=== PATIENT | male | born 1990 | race Caucasian/White ===

== ENCOUNTER 2016-04-03 16:28 | Emergency (ER) | payer SELFPAY ==
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
[2016-04-03 20:33] VITALS: BP 119/69
== END 2016-04-03 19:25 | disposition home or self-care (01) ==
LOC: ER 16:28
DX: S90.02XA Contusion of left ankle, initial encounter (principal); F17.200 Nicotine dependence, unspecified, uncomplicated; W22.09XA Striking against other stationary object, initial encounter
CPT/HCPCS: 99283

== ENCOUNTER 2016-04-09 08:52 | Emergency (ER) | payer SELFPAY ==
[2016-04-09 09:03] VITALS: BP 128/73
--- NOTE | 2016-04-09 10:09 | ER Document Report ---
ED Flu Like - General Chief Complaint: Flu Symptoms Stated Complaint: VOMITING Notes: The patient is a 25-year-old male, current smoker, presents with 1 day of nausea , vomiting and diarrhea. He does not drink water every day and only drinks Mountain Dew. He is also having mild epigastric pain when he vomits and noticed a small speck of blood earlier in his vomit today. He denies fevers, rhinorrhea, neck stiffness, chest pain, shortness of breath, cough, rash, hematochezia or urinary symptoms. TRAVEL OUTSIDE OF THE [place] IN LAST 30 DAYS: No - Related Data Allergies/Adverse Reactions: Penicillins Allergy (Mild, Verified 04/09/16 09:03) Past Medical History - General Information source: Patient - Social History Smoking Status: Current Every Day Smoker Chew tobacco use (# tins/day): No Frequency of alcohol use: None Drug Abuse: None Family History: Reviewed & Not Pertinent Patient has suicidal ideation: No Patient has homicidal ideation: No Renal/ Medical History: Denies: Hx Peritoneal Dialysis - Immunizations Hx Diphtheria, Pertussis, Tetanus Vaccination: Yes Review of Systems - Review of Systems Notes: REVIEW OF SYSTEMS: CONSTITUTIONAL: -fevers, +chills EENT: -eye pain, -difficulty swallowing, -nasal congestion CARDIOVASCULAR:-chest pain, -syncope. RESPIRATORY: -cough, -SOB GASTROINTESTINAL: -abdominal pain, +nausea, +vomiting, +diarrhea GENITOURINARY: -dysuria, -hematuria MUSCULOSKELETAL: -back pain, -neck pain SKIN: -rash or skin lesions. HEMATOLOGIC: -easy bruising or bleeding. LYMPHATIC: -swollen, enlarged glands. NEUROLOGICAL: -altered mental status or loss of consciousness, -headache, - neurologic symptoms PSYCHIATRIC: -anxiety, -depression. ALL OTHER SYSTEMS REVIEWED AND NEGATIVE. Physical Exam - Vital signs Vitals: Temp Pulse Resp BP Pulse Ox 98.1 F 73 16 128/73 H 98 04/09/16 09:01 04/09/16 09:01 04/09/16 09:01 04/09/16 09:01 04/09/16 09:01 - Notes Notes: PHYSICAL EXAMINATION: GENERAL: Well-appearing, well-nourished and in no acute distress. HEAD: Atraumatic, normocephalic. EYES: Pupils equal round and reactive to light, extraocular movements intact, sclera anicteric, conjunctiva are normal. ENT: nares patent, oropharynx clear without exudates. Moist mucous membranes. NECK: Normal range of motion, supple without lymphadenopathy LUNGS: Breath sounds clear to auscultation bilaterally and equal. No wheezes rales or rhonchi. HEART: Regular rate and rhythm without murmurs ABDOMEN: Mild epigastric tenderness, Soft, normoactive bowel sounds. No guarding, no rebound. No masses appreciated. EXTREMITIES: Normal range of motion, no pitting or edema. No cyanosis. NEUROLOGICAL: Cranial nerves grossly intact. Normal speech, normal gait. Normal sensory, motor, and reflex exams. PSYCH: Normal mood, normal affect. SKIN: Warm, Dry, normal turgor, no rashes or lesions noted. Course - Re-evaluation Re-evalutation: Patient appears very well. Well-hydrated. Spoke to patient about risks and benefits of Tamiflu, but patient does not want the Tamiflu due to his symptoms of vomiting and diarrhea already. Will provide Zofran and Pepcid and follow up at his primary care physician. Requesting a work note. - Vital Signs Vital signs: Temp Pulse Resp BP Pulse Ox 98.1 F 73 16 128/73 H 98 04/09/16 09:01 04/09/16 09:01 04/09/16 09:01 04/09/16 09:01 04/09/16 09:01 Discharge - Discharge Clinical Impression: Nausea vomiting and diarrhea Condition: Good Disposition: HOME, SELF-CARE Additional Instructions: VOMITING: Vomiting (or nausea without vomiting) can be caused by many other different problems. It can mean that something's wrong with the stomach, such as ulcers or inflammation or the intestinal tract, such as appendicitis. But it can also be a symptom of a problem that has nothing to do with the stomach or intestines. Vomiting is common with severe headaches, earaches, tonsillitis, and kidney infections, etc. We see it with pneumonia or heart attacks. Drugs can cause nausea and vomiting. Many abdominal problems cause vomiting; for example, gallstones, kidney stones, pancreatitis, and intestinal obstruction ( blocked bowels). In most cases, curing the vomiting depends on fixing the problem that caused it. For temporary relief, we may use an anti-nausea medicine. For home use, we can prescribe suppositories, chewable pills, pills that dissolve in the mouth, or liquid anti-nausea drugs. If the vomiting seems to be caused by a problem in the stomach, acid-suppressing drugs may be prescribed as well. It's important to avoid dehydration. Sip small amounts of clear liquids ( soft drinks, tea, broth, etc) . Try to take fluids frequently even if you are vomiting to prevent dehydration. Take increasing amounts of fluid and when liquids are being consumed successfully, advance to small amounts of bland food (toast, soups, mashed potatoes, etc.) until you are able to resume a regular diet. Avoid aspirin, tobacco, and alcohol. If the vomiting worsens, if the problem that's making you vomit worsens, or if there's evidence of bleeding in the stomach (such as black, tarry stool, or bloody or black vomit), you should return immediately. Also, return if abdominal pain worsens or becomes localized to one area or you develop high fever. Call your doctor if you aren't improved in 24 hours. DIARRHEA, NON-SPECIFIC: Diarrhea means frequent, watery stools. There are many causes. Any problem that keeps the intestinal tract from absorbing water from the stool can lead to diarrhea. A sudden new diarrhea problem is usually caused by a virus, food sensitivity, toxic bacteria, or drugs. In this case, we expect the problem to go away soon. Testing is done only if you seem seriously ill from the diarrhea. If you have chronic diarrhea, or diarrhea that keeps coming back, we need to find out why. Chronic diarrhea can be due to inflammation of the bowels such as Crohn's disease or ulcerative colitis, food sensitivity such as intolerance to lactose or wheat protein, irritable bowel syndrome, and other problems. If your diarrhea is a significant problem but it's not clear why you have it, we' ll refer you to a specialist for further testing. During an episode of diarrhea, drink small amounts (two to six ounces) of clear liquids (soft drinks, sport drinks, herb teas, broth, etc). Take fluids frequently to prevent dehydration. It's usually not a problem to take mild anti- diarrhea medication such as Kaopectate or Pepto-Bismol. As the diarrhea eases, advance to small amounts of bland food (mashed potato, toast) for 24 hours. Call the physician if blood appears in your vomit or stool, if vomiting lasts longer than 24 hours, if the abdominal pain worsens or becomes localized to one area, if you develop high fever, or if you become lightheaded and weak. VIRAL SYNDROME: The physician has diagnosed a viral infection. Viruses not only cause "colds," but can cause many different symptoms including generalized aching, fever, headache, cough, diarrhea, nausea, vomiting, and fatigue. The treatment, for the most part, is simply relief of symptoms. This means that antibiotics are usually not given. Rest, fluids, pain medications and, occasionally, medication for the specific symptoms that are most bothersome will be prescribed. Use good handwashing to avoid passing the virus to others. Shared toys should be cleaned with disinfectant. Clean the toilets, sinks, and counter surfaces in bathrooms. Launder clothing in hot water. Contact the physician if you develop any new or unusual symptoms such as severe headache, stiff neck, high fever, chest pain, productive cough, or shortness of breath. You should be rechecked if you don't see marked improvement within seven to 10 days. ANTINAUSEA MEDICATION: You have been given a medication to suppress nausea and vomiting. This type of medication can be given as a shot, pill, or suppository. It will usually last for many hours. Pills and shots usually last six to eight hours. For the typical illness, only one or two doses of the medication may be necessary. Mild lightheadedness may occur. This type of medicine can cause drowsiness. Do not drive or operate dangerous machinery while under its influence. Do not mix with alcohol. See your doctor at once if you have muscle spasms or tightness, or uncontrollable motions (particularly of the neck, mouth, or jaw). Persistent vomiting or severe lightheadedness should also be evaluated by the physician. FOLLOW-UP CARE: If you have been referred to a physician for follow-up care, call the physician s office for an appointment as you were instructed or within the next two days. If you experience worsening or a significant change in your symptoms, notify the physician immediately or return to the Emergency Department at any time for re-evaluation. INFLUENZA: The physician feels that you have influenza -- the "flu". Influenza is an infection caused by a virus. Symptoms include generalized aching, fever, headache, dry cough, and fatigue. Some patients with the flu also have nausea, vomiting, and diarrhea. The fever and aches usually last two to four days, with the cough persisting another one to two weeks. Treatment of the flu, for the most part, is simply treatment of symptoms. Rest, drink plenty of fluids, and use acetaminophen for fever and aches. Do not take aspirin. There is an anti-viral medication, called Tamiflu, which may help in "type A" flu, but it's not helpful in every case of flu, and only works if started within the first 24 - 48 hours of the start of symptoms. The physician will determine whether this medication can help you. To prevent spread of the virus, use good handwashing. Shared toys should be cleaned with disinfectant. Clean the toilets, sinks, and counter surfaces in bathrooms. Launder clothing in hot water. What are conditions that should receive medical attention? The development of difficulty breathing. Lip color changes to blue or purple. Persistent vomiting and unable to keep liquids down with signs of dehydration such as: dizziness when standing, unable to urinate, or if child/infant is crying no tears are noticed. Is less responsive than normal or becomes confused. How do I decrease the spread of flu in my home? Taking care of the sick patient at home: Keep the sick person in a room separate from the common areas of the house. Keep the "sickroom" door closed. If the person with the flu needs to leave the home, they should cover their nose/mouth when coughing or sneezing and wear a disposable (surgical) mask if available. These masks may be available at your local pharmacy, medical supply and hardware store. If the sick person is in common areas of the house, have them wear a surgical mask. If possible, have the sick person use a separate bathroom that should be cleaned daily with a household disinfectant. If you are the caregiver: Avoid being face to face with the sick adult person as much as possible. Try to stay at least 6 feet away and wear a disposable surgical mask when possible. When holding small children who are sick, place their chin on your shoulder so that they will not cough in your face. Wash your hands after you touch the sick person or handle their tissues and laundry. Wear a mask if you leave home, as you may be infected from taking care of someone and not know it yet. Watch yourself and others in the home for flu symptoms and contact your doctor if symptoms occur. NOTE: Antiviral medication used to reduce the symptoms of the flu works only if taken within 48 hours, and best within 24 hours of symptom onset. Household Cleaning, laundry and waste disposal: Tissues and other disposable items used by the sick person should be thrown away in the trash. Wash your hands after touching these used items. No special waste disposal is required. Keep surfaces (especially bedside tables, bathroom surfaces, and toys for children) clean by wiping them down with a safe household disinfectant according to the directions on the product label. Per Center for Disease Control advice, most people will not receive testing to confirm flu. Also based on the person's health history and onset of symptoms, not all patients will receive prescriptions for antiviral medications. If you have questions related to this, please ask your healthcare provider. For more information, you can call the Centers for Disease Control and Prevention ([facility]) Hotline at 1-407-TSZTaggs This line is available in Slovenian and Syriac, 24 hours a day, 7 days a week. Or www.[employer] or www.cdc.gov Flu-Like Illness Home Instructions: The influenza virus infection can cause a wide rage of symptoms, including: Fever, cough, sore throat, body aches, headaches, chills, fatigue, with some patients reporting diarrhea and vomiting Like seasonal influenza A, H1N1 ("swine flu")in humans can vary in severity from mild to severe Severe illness with pneumonia, respiratory failure and even is possible Certain groups might be more likely to develop a severe illness from H1N1 infection. Sometimes bacterial infections may occur at the same time as or after infection with influenza viruses and lead to pneumonias, ear infections, or sinus infections. How Flu Spreads The main way that influenza viruses spread is through respiratory droplets of coughs and sneezes. This can happen when someone with the infection coughs or sneezes and the particles fly through the air and land on other people and surfaces. If the person covers their mouth and nose with their hand but does not wash their hands immediately, then these germs are passed onto the next object that they touch. People with Influenza A or suspected H1N1 (swine flu) who are cared for at home should: Check with their doctor about any special care that they might need if they are or have a health condition such as diabetes, heart disease, asthma or emphysema. Also, limit caregiver to one (if possible). women or those with chronic health conditions should not take care of the flu patient unless necessary. Check with their doctor about whether or not medications are needed that may lessen the symptoms of the flu. Stay at home until 24 hours fever free without the use of fever reducing medication. Get plenty of rest and avoid other healthy people in your home. Drink plenty of clear liquids to keep from getting dehydrated. Take medications like Tylenol (Acetaminophen), Advil/Motrin/Nuprin ( Ibuprofen) or Aleve (Naproxen) for fevers and aches. All children under the age of 18 years of age should not take aspirin or products containing aspirin (e.g. Pepto Bismol), as this can cause a rare serious illness called Mary Syndrome. Over the counter medications for flu and colds may help, but it is very important to follow the package directions. Remember that the medicine may help the symptoms, but it will not help prevent others from getting sick if they are around you. Cover coughs and sneezes using your bent arm. Clean hands with soap and water or an alcohol-based hand rub often, especially after using tissues to cough or sneeze. Encourage hand washing frequently for all people living in the home! The sick person should not have visitors other than caregivers. Encourage concerned loved ones to call instead of visit. Avoid close contact with others-do not go to work or school while sick. USE OF ACETAMINOPHEN (Tylenol): Acetaminophen may be taken for pain relief or fever control. It's much safer than aspirin, offering a wider range of "safe" dosages. It is safe during . Some brand names are Tylenol, Panadol, Datril, Anacin 3, Tempra, and Liquiprin. Acetaminophen can be repeated every four hours. The following are maximum recommended dosages: WEIGHT Dose Drops Elixir Chewable( 80mg) (LBS.) drprs=droppers tsp=teaspoon 6 40 mg 0.4 ml (1/2) 6-11 80 mg 0.8 ml (full) tsp 1 tab 12-16 120 mg 1 1/2 drprs 3/4 tsp 1 1/2 tabs 17-23 160 mg 2 drprs 1 tsp 2 tabs 24-30 240 mg 3 drprs 1 1/2 tsp 3 tabs 30-35 320 mg 2 tsp 4 tabs 36-41 360 mg 2 1/4 tsp 4 1/2 tabs 42-47 400 mg 2 1/2 tsp 5 tabs 48-53 480 mg 3 tsp 6 tabs 54-59 520 mg 3 1/4 tsp 6 1/2 tabs 60-64 560 mg 3 1/2 tsp 7 tabs 65-70 600 mg 3 3/4 tsp 7 1/2 tabs 71-76 640 mg 4 tsp 8 tabs 77-82 720 mg 4 1/2 tsp 9 tabs 83-88 800 mg 5 tsp 10 tabs >89 pounds or adults 650 mg to 900 mg Acetaminophen can be repeated every four hours. Maximum dose not to exceed 4000 mg a day. These maximum recommended dosages are slightly higher than the dosages written on the product container, but these dosages are very safe and below the toxic dosage for acetaminophen. ORAL NARCOTIC MEDICATION: You have been given a prescription for pain control. This medication is a narcotic. It's best taken with food, as nausea can result if taken on an empty stomach. Don't operate machinery or drive within six hours of taking this medication. Do not combine this medicine with alcohol, or with any medication which can cause sedation (such as cold tablets or sleeping pills) unless you get permission from the physician. Narcotics tend to cause constipation. If possible, drink plenty of fluids and eat a diet high in fiber and fruits. Please be aware that prescription narcotics also have the potential for abuse. People become addicted to these medications because of the general sense of wellbeing that they induce. This feeling along with a significant reduction in tension, anxiety, and aggression provides a stimulating seductive quality to these drugs. Once your pain is under control, we encourage you to discard your unused narcotics. FOLLOW-UP CARE: If you have been referred to a physician for follow-up care, call the physician s office for an appointment as you were instructed or within the next two days. If you experience worsening or a significant change in your symptoms, notify the physician immediately or return to the Emergency Department at any time for re-evaluation. Prescriptions: Ondansetron [Zofran Odt 4 mg Tablet] 1 - 2 tab PO Q4H PRN #15 tab.rapdis PRN Reason: For Nausea/Vomiting Forms: Return to Work
== END 2016-04-09 10:35 | disposition home or self-care (01) ==
LOC: ER 08:52
DX: R11.2 Nausea with vomiting, unspecified (principal); R19.7 Diarrhea, unspecified; F17.210 Nicotine dependence, cigarettes, uncomplicated
CPT/HCPCS: 99283

== ENCOUNTER 2016-08-05 18:49 | Emergency (ER) | payer SELFPAY ==
[2016-08-05] MEDS ORDERED: HYDROCODONE/ACETAMINOPHEN 5-325 MG 6 TAB/DSPK PO PRN (19:21)
[2016-08-05] MEDS ORDERED: CLINDAMYCIN HCL 150 MG CAPSULE PO ONE (19:21)
--- NOTE | 2016-08-05 19:23 | ER Document Report ---
HPI - HPI Patient complains to provider of: right jaw pain Onset: Other - 2 days Onset/Duration: Persistent Quality of pain: Achy Pain Level: 5 Context: Presents complaining of right lower jaw pain for the past 2 days. Patient denies any fever or facial swelling. Associated Symptoms: Other - toothache. denies: Fever Exacerbated by: Denies Relieved by: Denies Similar symptoms previously: No Recently seen / treated by doctor: No - ROS ROS below otherwise negative: Yes Systems Reviewed and Negative: Yes All other systems reviewed and negative - CONSTITUTIONAL Constitutional: DENIES: Fever - EENT Notes: dental pain - NEURO Neurology: DENIES: Headache, Weakness - RESPIRATORY Respiratory: DENIES: Coughing - GASTROINTESTINAL Gastrointestinal: DENIES: Nausea, Patient vomiting - MUSCULOSKELETAL Musculoskeletal: DENIES: Neck Pain - DERM Skin Color: Normal Skin Problems: None Past Medical History - General Information source: Patient - Social History Smoking Status: Current Every Day Smoker Frequency of alcohol use: None Drug Abuse: None 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 Lives with: Spouse/Significant other Family History: Reviewed & Not Pertinent Patient has suicidal ideation: No Patient has homicidal ideation: No Renal/ Medical History: Denies: Hx Peritoneal Dialysis Psychiatric Medical History: Reports: Hx Bipolar Disorder, Hx Post Traumatic Stress Disorder, Hx Schizophrenia Past Surgical History: Reports: Hx Orthopedic Surgery - Right finger - Immunizations Hx Diphtheria, Pertussis, Tetanus Vaccination: Yes Vertical Provider Document - CONSTITUTIONAL Agree With Documented VS: Yes Exam Limitations: No Limitations General Appearance: WD/WN, No Apparent Distress - INFECTION CONTROL TRAVEL OUTSIDE OF THE [place] IN LAST 30 DAYS: No - HEENT HEENT: Atraumatic, Normocephalic. negative: Pharyngeal Exudate, Pharyngeal Tenderness, Pharyngeal Erythema, Tympanic Membrane Red, Tympanic Membrane Bulging Mouth Diagram: 1 - Dental decay, tenderness, fracture - NECK Neck: Normal Inspection, Supple. negative: Lymphadenopathy-Left, Lymphadenopathy-Right - RESPIRATORY Respiratory: Breath Sounds Normal, No Respiratory Distress, Chest Non-Tender O2 Sat by Pulse Oximetry: 95 - CARDIOVASCULAR Cardiovascular: Regular Rate, Regular Rhythm, No Murmur - BACK Back: Normal Inspection - MUSCULOSKELETAL/EXTREMETIES Musculoskeletal/Extremeties: WILBUR CLIFFORD - NEURO Level of Consciousness: Awake, Alert, Appropriate Motor/Sensory: No Motor Deficit - DERM Integumentary: Warm, Dry, No Rash Course - Vital Signs Vital signs: Temp Pulse Resp BP Pulse Ox 99.2 F 95 16 133/83 H 95 08/05/16 18:54 08/05/16 18:54 08/05/16 18:54 08/05/16 18:54 08/05/16 18:54 Discharge - Discharge Clinical Impression: Toothache Condition: Stable Disposition: HOME, SELF-CARE Instructions: Clindamycin ([facility]), Oral Narcotic Medication ([facility]), Toothache ([facility] ) Additional Instructions: Return immediately for any new or worsening symptoms Followup with your primary care provider, call tomorrow to make a followup appointment Follow-up with a dental care provider Prescriptions: Clindamycin HCl [Cleocin 300 mg Capsule] 300 mg PO TID #21 capsule Naproxen [Naprosyn 250 Nmg Tablet] 1 tab PO BID #14 tablet Forms: Return to Work Referrals: [facility] [Provider Group] - Follow up as needed
[2016-08-05 20:08] VITALS: BP 139/76
== END 2016-08-05 20:00 | disposition home or self-care (01) ==
LOC: ER 18:49
DX: K02.9 Dental caries, unspecified (principal); K08.89 Other specified disorders of teeth and supporting structures; F17.200 Nicotine dependence, unspecified, uncomplicated
CPT/HCPCS: 99283

== ENCOUNTER 2017-01-24 22:00 | Emergency (ER) | payer SELFPAY ==
[2017-01-25] MEDS ORDERED: KETOROLAC TROMETHAMINE INJ/PF 30 MG/1 ML SDV IM ONE (00:01)
[2017-01-25] MEDS ORDERED: DEXAMETHASONE SOD PHOS INJ 10 MG/1 ML VIAL IM ONE (00:01)
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
[2017-01-25 00:13] VITALS: BP 120/74
== END 2017-01-25 00:27 | disposition home or self-care (01) ==
LOC: ER 22:00
DX: M54.6 Pain in thoracic spine (principal); G89.29 Other chronic pain; M54.2 Cervicalgia; F17.200 Nicotine dependence, unspecified, uncomplicated
CPT/HCPCS: 99283; 96372; J1885; J1100; 36415; 80053; 83690; 85025

== ENCOUNTER 2017-02-08 00:16 | Emergency (ER) | payer SELFPAY ==
[2017-02-08 01:45] VITALS: BP 122/81
[2017-02-08] MEDS ORDERED: CLINDAMYCIN HCL 150 MG CAPSULE PO ONE (01:49)
[2017-02-08] MEDS ORDERED: OXYCODONE-ACETAMINOPHEN 5-325 MG TABLET PO ONE (01:49)
[2017-02-08] MEDS ORDERED: HYDROCODONE/ACETAMINOPHEN 5-325 MG (6 TAB/ER DISP) PO PRN (01:49)
--- NOTE | 2017-02-08 01:51 | ER Document Report ---
HPI - HPI Patient complains to provider of: Dental pain Pain Level: 5 Context: Patient is a 26-year-old male that comes emergency department for chief complaint of 3 days of worsening pain and swelling in his right he has known dental fractures, he states he tried to call and follow-up with the dentist but they have been closed over the holiday and he has not been able to make it in. He denies sore throat, neck pain, fevers, or trauma. Past Medical History - General Information source: Patient - Social History Smoking Status: Never Smoker Frequency of alcohol use: None Drug Abuse: None Lives with: Family Family History: Reviewed & Not Pertinent Renal/ Medical History: Denies: Hx Peritoneal Dialysis Psychiatric Medical History: Reports: Hx Bipolar Disorder, Hx Depression, Hx Post Traumatic Stress Disorder Past Surgical History: Reports: Hx Orthopedic Surgery - Right finger - Immunizations Hx Diphtheria, Pertussis, Tetanus Vaccination: Yes Vertical Provider Document - CONSTITUTIONAL General Appearance: WD/WN, Mild Distress - Patient appears to be in some pain - INFECTION CONTROL TRAVEL OUTSIDE OF THE [place] IN LAST 30 DAYS: No - HEENT HEENT: Atraumatic, Normocephalic. negative: Normal ENT Exam - Mild swelling of the right sided cheek, no submandibular swelling, no lymphadenopathy, normal ENT exam otherwise except for dental exam listed below Mouth Diagram: 1 - Multiple dental caries with surrounding erythema of the gumline, no palpable abscesses, normal oral/pharyngeal exam otherwise - NECK Neck: Normal Inspection - RESPIRATORY Respiratory: Breath Sounds Normal, No Respiratory Distress O2 Sat by Pulse Oximetry: 99 - CARDIOVASCULAR Cardiovascular: Regular Rate, Regular Rhythm - GI/ABDOMEN Gastrointestinal: Abdomen Soft, Abdomen Non-Tender - NEURO Level of Consciousness: Awake, Alert, Appropriate - DERM Integumentary: Warm, Dry, No Rash Course - Vital Signs Vital signs: Temp Pulse Resp BP Pulse Ox 98.5 F 59 L 18 122/81 99 02/08/17 00:41 02/08/17 00:41 02/08/17 00:41 02/08/17 00:41 02/08/17 00:41 Discharge - Discharge Clinical Impression: Pain, dental, Dental infection Condition: Stable Disposition: HOME, SELF-CARE Additional Instructions: Your examination indicates a dental infection. Take the clindamycin as prescribed to completion. Call again to follow-up with the dentist to likely have extractions to prevent this from occurring again. Return if you worsen including worsening swelling of the face. Prescriptions: Clindamycin HCl [Cleocin 150 mg Capsule] 150 mg PO Q6 #56 capsule
== END 2017-02-08 02:05 | disposition home or self-care (01) ==
LOC: ER 00:16
DX: K04.7 Periapical abscess without sinus (principal); K02.9 Dental caries, unspecified; K08.89 Other specified disorders of teeth and supporting structures
CPT/HCPCS: 99282

== ENCOUNTER 2017-04-19 00:42 | Emergency (ER) | payer SELFPAY ==
--- NOTE | 2017-04-19 05:25 | ER Document Report ---
ED Flu Like - General Chief Complaint: Flu Symptoms Stated Complaint: FLU LIKE SYMPTOMS Time Seen by Provider: 04/19/17 03:56 Mode of Arrival: Ambulatory Information source: Patient TRAVEL OUTSIDE OF THE [place] IN LAST 30 DAYS: No - HPI Patient complains to provider of: FEVER, BODY ACHES Onset: This afternoon Notes: Patient is here with complaints of fever, cough, body aches that started earlier today. He has had nausea, but denies any vomiting or diarrhea. He denies abdominal pain. He denies any chest pain or shortness of breath. No rash. He denies any chronic medical conditions aside from mental health disease. He denies lung disease, immunosuppression, HIV. He denies any dysuria or hematuria. No penile discharge. No rash. His biggest concern is that he had to miss work and he needs a work note. - Related Data Allergies/Adverse Reactions: Penicillins Allergy (Mild, Verified 02/08/17 02:08) latex Allergy (Verified 02/08/17 02:08) Past Medical History - Social History Smoking Status: Current Every Day Smoker Chew tobacco use (# tins/day): No Frequency of alcohol use: Rare Drug Abuse: None Family History: Reviewed & Not Pertinent Patient has suicidal ideation: No Patient has homicidal ideation: No Renal/ Medical History: Denies: Hx Peritoneal Dialysis Psychiatric Medical History: Reports: Hx Bipolar Disorder, Hx Depression, Hx Post Traumatic Stress Disorder, Hx Schizophrenia Past Surgical History: Reports: Hx Orthopedic Surgery - Right finger - Immunizations Hx Diphtheria, Pertussis, Tetanus Vaccination: Yes Review of Systems - Review of Systems -: Yes All other systems reviewed and negative Physical Exam - Vital signs Vitals: Temp Pulse Resp BP Pulse Ox 99.8 F 95 16 137/82 H 98 04/19/17 00:47 04/19/17 00:47 04/19/17 00:47 04/19/17 00:47 04/19/17 00:47 - Notes Notes: GENERAL: alert, cooperative, nontoxic, no distress. HEAD: normocephalic, atraumatic EYES: conjunctiva pink without discharge, no external redness or swelling. EARS: no external swelling, no external redness, no mastoid redness, swelling, tenderness. Ear canals are clear without swelling or drainage. TMs pearly hernandez , no redness, no bulging, normal landmarks, no perforation. NOSE: atraumatic, no external swelling. clear rhinorrhea noted. MOUTH/THROAT: mucous membranes moist and pink, posterior pharynx without erythema, swelling, exudate. No trismus or drooling. NECK: soft, supple, full range of motion, no meningismus. CHEST: no distress, lungs clear and equal throughout. No wheezing, rales, rhonchi. CARDIAC: regular rate and rhythm, no murmur, normal capillary refill, normal pulses. No peripheral edema noted. BACK: full range of motion, no CVA tenderness. EXTREMITIES: full range of motion of all extremities. No redness, no swelling. NEURO: alert and oriented A&O3, no focal deficits, full range of motion of all extremities. PYSCH: appropriate mood, affect. Patient is cooperative. SKIN: pink, warm, dry, no rash. Course - Re-evaluation Re-evalutation: 04/19/17 05:22 The patient is nontoxic appearing with stable vitals. The patient arrives with complaints of fever up to 103 with body aches and cough. He has a completely benign exam. It is likely that the patient has influenza. We are seeing a high incidence of influenza at this time. We do not have rapid influenza test at this time. Patient has no high risk conditions for flu complications according to the CDC recommendations. I offered Tamiflu, the patient declined. He will be discharged home with instructions to take Tylenol or Motrin as needed for pain or fever. His biggest concern was that he needs a work note for a job that he recently started due to needing to miss work. I explained that he needed to be without a fever for 24 hours without Tylenol or Motrin before he returns back to work to prevent spread of his illness. The patient is noted to have elevated blood pressure during today's emergency department visit. The patient was informed of this finding. The patient was instructed that this may be related to pre-hypertension and requires further evaluation with a primary care provider. The patient has no hypertensive symptoms at this time. The patient's emergency department workup and current diagnosis were explained to the patient and or family. Follow-up instructions were provided. Medications if prescribed were discussed. Instructions for when to return to the emergency department including specific worrisome symptoms were discussed with the patient and/or family. - Vital Signs Vital signs: Temp Pulse Resp BP Pulse Ox 98.1 F 95 16 137/82 H 98 03/06/18 04:29 04/19/17 00:47 04/19/17 00:47 04/19/17 00:47 04/19/17 00:47 Discharge - Discharge Clinical Impression: Influenza Condition: Stable Disposition: HOME, SELF-CARE Instructions: Influenza ([facility]) [id number] Additional Instructions: Take Tylenol and Motrin as needed for pain or fever. Drink lots of fluids. Follow-up with your doctor if not better in 1 week, sooner for worsening symptoms, high fever, difficulty breathing, or any further concerns. You should not return to work until you have not had a fever for 24 hours without Tylenol or Motrin. Your blood pressure was elevated during today's visit. Have this rechecked with your doctor. Forms: Elevated Blood Pressure, Smoking Cessation Education, Return to Work Referrals: [facility] [Provider Group] - Follow up as needed
[2017-04-19 06:30] VITALS: BP 122/71
== END 2017-04-19 06:29 | disposition home or self-care (01) ==
LOC: ER 00:42
DX: J11.1 Influenza due to unidentified influenza virus with other respiratory manifestations (principal); R03.0 Elevated blood-pressure reading, without diagnosis of hypertension; R50.9 Fever, unspecified; R05 Cough; R52 Pain, unspecified; R11.0 Nausea; F17.200 Nicotine dependence, unspecified, uncomplicated; Z88.0 Allergy status to penicillin; Z91.040 Latex allergy status
CPT/HCPCS: 99283

== ENCOUNTER 2017-06-23 17:16 | Emergency (ER) | payer OTHER ==
[2017-06-23 17:29] VITALS: BP 135/61
--- NOTE | 2017-06-23 18:19 | ER Document Report ---
ED Hand/Wrist Injury - General Chief Complaint: Hand Pain Stated Complaint: HAND PAIN/NUMBNESS, DIZZY Time Seen by Provider: 06/23/17 17:41 Mode of Arrival: Ambulatory Information source: Patient TRAVEL OUTSIDE OF THE [place] IN LAST 30 DAYS: No - HPI Patient complains to provider of: right thumb pain, dizzy Notes: Patient is here with 2 complaints. 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 She been having some pain at the base of his right thumb is worse with any sort of movement. There is no traumatic injury noted. Occasionally complains of some tingling to the thumb, but denies any numbness or tingling currently. Pain in the thumb is worse with any sort of movement. No redness or fever. 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 He states that they were using a chlorine smelling light cleaner near him somewhat dizzy while he was around it. Reports that he vomited one time. States that since he has been out of that environment, he feels completely fine. He denies any blurred or loss vision, numbness, tingling , weakness, chest pain, shortness of breath or any other complaints at this time. - Related Data Allergies/Adverse Reactions: Penicillins Allergy (Mild, Verified 02/08/17 02:08) Bleach (Sodium Hypochlorite) Allergy (Verified 06/23/17 17:25) latex Allergy (Verified 02/08/17 02:08) Past Medical History - Social History Smoking Status: Current Every Day Smoker Family History: Reviewed & Not Pertinent Patient has suicidal ideation: No Patient has homicidal ideation: No Renal/ Medical History: Denies: Hx Peritoneal Dialysis Psychiatric Medical History: Reports: Hx Bipolar Disorder, Hx Depression, Hx Post Traumatic Stress Disorder, Hx Schizophrenia Past Surgical History: Reports: Hx Orthopedic Surgery - Right finger - Immunizations Hx Diphtheria, Pertussis, Tetanus Vaccination: Yes Review of Systems - Review of Systems -: Yes All other systems reviewed and negative Physical Exam - Vital signs Vitals: Temp Pulse Resp BP Pulse Ox 98.9 F 64 16 135/61 H 97 06/23/17 17:28 06/23/17 17:28 06/23/17 17:28 06/23/17 17:28 06/23/17 17:28 - Notes Notes: GENERAL: alert, cooperative, nontoxic, no distress. HEAD: normocephalic, atraumatic EYES: conjunctiva pink without discharge, no external redness or swelling. Pupils are equal, round, reactive to light. EARS: no external swelling, no external redness NOSE: atraumatic, no external swelling MOUTH/THROAT: mucous membranes moist and pink, posterior pharynx without erythema, swelling, exudate. No trismus or drooling. NECK: soft, supple, full range of motion, no meningismus. CHEST: no distress, lungs clear and equal throughout. No wheezing, rales, rhonchi. CARDIAC: regular rate and rhythm, no murmur, normal capillary refill, normal pulses. No peripheral edema noted. BACK: full range of motion, no CVA tenderness. EXTREMITIES: full range of motion of all extremities. No redness, no swelling. Patient is tenderness along the base of his right thumb positive Lisseth' s test. No redness. Normal pulse and sensation. Normal cap refill. Full range of motion but with pain. NEURO: alert and oriented x 3, cranial nerves II through XII are grossly intact. Upper and lower extremities are equal throughout. Normal sensation. No focal deficits, full range of motion of all extremities. normal finger to nose. PYSCH: appropriate mood, affect. Patient is cooperative. SKIN: pink, warm, dry, no rash. Course - Re-evaluation Re-evalutation: 06/23/17 18:22 Patient is nontoxic appearing with stable vitals. Is here with complaints of right thumb pain as well as some dizziness. The right thumb pain been normal for the last few days worse with movement. He had no injury and has no redness or signs of infection. No fever. 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 He had an Qasim wrap applied. He states he has been taking Aleve and ibuprofen without relief. I will place him on steroids to help with his tendinitis. He was instructed to rest and ice to injury as well. He also reports that today while at work there using a chlorine smelling chemical to clean. He has sensitivity to this and states that he started to feel dizzy and vomited once while he was around the chemical smell. States that since being away from that smell he feels completely fine. Is likely having a reaction to the chemicals. This point he feels completely fine, therefore no further testing is needed at this time. The patient's emergency department workup and current diagnosis were explained to the patient and or family. Follow-up instructions were provided. Medications if prescribed were discussed. Instructions for when to return to the emergency department including specific worrisome symptoms were discussed with the patient and/or family. The patient is noted to have elevated blood pressure during today's emergency department visit. The patient was informed of this finding. The patient was instructed that this may be related to pre-hypertension and requires further evaluation with a primary care provider. The patient has no hypertensive symptoms at this time. - Vital Signs Vital signs: Temp Pulse Resp BP Pulse Ox 98.9 F 64 16 135/61 H 97 06/23/17 17:28 06/23/17 17:28 06/23/17 17:28 06/23/17 17:28 06/23/17 17:28 Procedures - Immobilization right thumb Pre-Proc Neuro Vasc Exam: Normal Immobilizer type: Qasim wrap Performed by: PCT Post-Proc Neuro Vasc Exam: Normal Alignment checked and good: Yes Discharge - Discharge Clinical Impression: Tendonitis, Dizziness Condition: Stable Disposition: HOME, SELF-CARE Instructions: Dizziness ([facility]), Tendonitis ([facility]) Additional Instructions: Take medications as prescribed. Wear Qasim wrap as needed for comfort. Rest, ice , elevate the sore area. Follow-up if not better in 1 week, sooner for worsening symptoms, high fever, persistent vomiting, weakness, chest pain, shortness of breath, any further concerns. Your blood pressure was elevated during today's visit. Have this rechecked with your doctor. Prescriptions: Prednisone [Deltasone 20 mg Tablet] 3 tab PO DAILY 5 Days tablet Forms: Elevated Blood Pressure, Smoking Cessation Education, Return to Work Referrals: [facility] [Provider Group] - Follow up as needed
== END 2017-06-23 18:25 | disposition home or self-care (01) ==
LOC: ER 17:16
DX: R42 Dizziness and giddiness (principal); M77.9 Enthesopathy, unspecified; M79.641 Pain in right hand; R11.10 Vomiting, unspecified; R03.0 Elevated blood-pressure reading, without diagnosis of hypertension; F17.200 Nicotine dependence, unspecified, uncomplicated; Z88.0 Allergy status to penicillin; Z91.040 Latex allergy status
CPT/HCPCS: 99283

== ENCOUNTER 2017-06-28 21:54 | Emergency (ER) | payer SELFPAY ==
[2017-06-28 22:28] VITALS: BP 118/64
--- NOTE | 2017-06-29 00:46 | ER Document Report ---
HPI - HPI Pain Level: 5 Notes: Patient is a 27-year-old male presents to the ED with continued right thumb pain , soreness, and now right lateral jaw pain. patient states that he has a history of TMJ and has had pain in this area before. Patient states that he has no dental pain. He is eating and drinking without difficulties. He is urinating normally and having normal bowel moods. Patient states that he works in a job that he uses his hands a lot which is developed soreness in and around his thumb and wrist. Pain does not radiate. He has no associated numbness or tingling. Patient is requesting a work note for light duty for a few days. 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 Denies any headache, fever, head injury, neck pain , URI, sore throat, chest pain, palpitations, syncope, cough, shortness of breath, wheeze, dyspnea, abdominal pain, nausea/vomiting/diarrhea, urinary retention, dysuria, hematuria, loss of control of bowel or bladder, numbness/ tingling, muscle paralysis/weakness, or rash. - ROS Systems Reviewed and Negative: Yes All other systems reviewed and negative - CONSTITUTIONAL Constitutional: DENIES: Fever, Chills - EENT EENT: DENIES: Sore Throat, Ear Pain, Eye problems - NEURO Neurology: REPORTS: Headache - jaw pain. DENIES: Weakness, Vision blurred, Dizzinesss / Vertigo - CARDIOVASCULAR Cardiovascular: DENIES: Chest pain - RESPIRATORY Respiratory: DENIES: Trouble Breathing, Coughing - GASTROINTESTINAL Gastrointestinal: DENIES: Abdominal Pain, Black / Bloody Stools - URINARY Urinary: DENIES: Dysuria, Urgency, Frequency - MUSCULOSKELETAL Musculoskeletal: REPORTS: Extremity pain - R wrist/arm Past Medical History - Social History Smoking Status: Unknown if Ever Smoked Family History: Reviewed & Not Pertinent Patient has suicidal ideation: No Patient has homicidal ideation: No Renal/ Medical History: Denies: Hx Peritoneal Dialysis Psychiatric Medical History: Reports: Hx Bipolar Disorder, Hx Depression, Hx Post Traumatic Stress Disorder, Hx Schizophrenia Past Surgical History: Reports: Hx Orthopedic Surgery - Right finger - Immunizations Hx Diphtheria, Pertussis, Tetanus Vaccination: Yes Vertical Provider Document - CONSTITUTIONAL Agree With Documented VS: Yes Notes: PHYSICAL EXAMINATION: GENERAL: Well-appearing, well-nourished and in no acute distress. HEAD: Atraumatic, normocephalic. EYES: Pupils equal round and reactive to light, extraocular movements intact, sclera anicteric, conjunctiva are normal. ENT: EAC clear b/l. TM's intact b/l without erythema, fluid, or perforation. Nares patent and without discharge. oropharynx clear without exudates. No tonsilar hypertrophy or erythema. Moist mucous membranes. No sinus tenderness. Jaw: + mild tenderness at the lateral joint. No erythema, swelling, or dental tenderness/abscess/discharge. NECK: Normal range of motion, supple without lymphadenopathy LUNGS: Breath sounds clear to auscultation bilaterally and equal. No wheezes rales or rhonchi. HEART: Regular rate and rhythm without murmurs, rubs, gallops. Musculoskeletal: Rt wrist/hand: FROM to passive/active. Strength 5+/5. N/V intact distal. + jens test, correlates with pain described. No bony tenderness of the wrist/hand. No ecchymosis, erythema, deformity, or swelling noted. Extremities: No cyanosis, clubbing, or edema b/l. Peripheral pulses 2+. Capillary refill less than 3 seconds. NEUROLOGICAL: Normal speech, normal gait. Normal sensory, motor exams PSYCH: Normal mood, normal affect. SKIN: Warm, Dry, normal turgor, no rashes or lesions noted. - INFECTION CONTROL TRAVEL OUTSIDE OF THE [place] IN LAST 30 DAYS: No Course - Re-evaluation Re-evalutation: 06/29/17 00:44 Patient is an afebrile, well-hydrated, 27-year-old male who presents to the ED with de Quervain's tenosynovitis of the right wrist as well as right lateral jaw pain, suspect relation with his TMJ. Vitals are acceptable. PE is otherwise unremarkable for any neurovascular compromise, obvious tendon/ ligament rupture, obvious fracture/dislocation, septic joint. No labs or imaging warranted at this time based on H&P. Patient declined any injections today. I will send him home with a prescription for Voltaren gel, thumb spica, muscle relaxer, and a steroid taper. Conservative measures otherwise for symptoms. Recheck with your PCM in 3-5 days. Consider consult orthopedic/ physical therapy. Return to the ED with any worsening/concerning symptoms otherwise as reviewed discharge. Work note provided. Patient is in agreement. - Vital Signs Vital signs: Temp Pulse Resp BP Pulse Ox 98.1 F 64 18 118/64 98 06/28/17 22:26 06/28/17 22:26 06/28/17 22:26 06/28/17 22:26 06/28/17 22:26 Discharge - Discharge Clinical Impression: De Quervain's disease (tenosynovitis), Jaw pain Condition: Stable Disposition: HOME, SELF-CARE Instructions: Tendonitis ([facility]) Additional Instructions: Rest, Ice, Compression, Elevation Use splint as directed Tylenol/ibuprofen as needed Light stretches daily Strength exercises as able Moist heat and massage may help F/u with your PCP in 3-5 days for a recheck Consider consult(s) with Orthopedics/physical therapy for ongoing/worsening symptoms Return to the ED with any worsening symptoms and/or development of fever, headache, chest pain, palpitations, syncope, shortness of breath, trouble breathing, abdominal pain, n/v/d, muscle weakness/paralysis, numbness/tingling, swelling, redness, or other worsening symptoms that are concerning to you. Prescriptions: Baclofen [Baclofen 10 mg Tablet] 5 - 10 mg PO BID PRN #10 tablet PRN Reason: Diclofenac Sodium [Voltaren] 4 gm TP QID PRN #100 gel..gm. PRN Reason: Prednisone [Deltasone 10 mg Tablet] 10 mg PO ASDIR PRN #21 tablet PRN Reason: Forms: Return to Work Referrals: [facility] [Provider Group] - Follow up as needed
[2017-06-29] MEDS ORDERED: NAPROXEN 250 MG TABLET PO ONE (00:56)
== END 2017-06-29 00:58 | disposition home or self-care (01) ==
LOC: ER 21:54
DX: M65.4 Radial styloid tenosynovitis [de Quervain] (principal); R68.84 Jaw pain
CPT/HCPCS: 99283

== ENCOUNTER 2017-07-12 00:27 | Emergency (ER) | payer OTHER ==
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
--- NOTE | 2017-07-12 02:25 | RADIOLOGY REPORT (SQ) ---
EXAM DESCRIPTION: Left wrist, 3 views CLINICAL HISTORY: Pain s/p fall COMPARISON: None. FINDINGS: 3 views of the left wrist. No acute fracture or dislocation. Normal osseous mineralization. The radius, capitate, and lunate have appropriate alignment. IMPRESSION: No acute fracture or dislocation.
[2017-07-12] MEDS ORDERED: NAPROXEN 250 MG TABLET PO ONE (02:41)
[2017-07-12 03:03] VITALS: BP 120/68
== END 2017-07-12 03:02 | disposition home or self-care (01) ==
LOC: ER 00:27
DX: S63.502A Unspecified sprain of left wrist, initial encounter (principal); M25.532 Pain in left wrist; V28.9XXA Unspecified motorcycle rider injured in noncollision transport accident in traffic accident, initial encounter; Z88.0 Allergy status to penicillin; Z91.040 Latex allergy status; Z91.048 Other nonmedicinal substance allergy status
CPT/HCPCS: 99283

== ENCOUNTER → 2017-10-06 | Outpatient (CLI) | payer OTHER ==
[2017-10-06 15:10] LABS: ABSOLUTE EOSINOPHILS # (AUTO) 0.1 10^3/uL (0.0-0.6); ABSOLUTE LYMPHOCYTES (AUTO) 2.6 10^3/uL (0.5-4.7); ABSOLUTE MONOCYTES (AUTO) 0.7 10^3/uL (0.1-1.4); ABSOLUTE NEUT (AUTO) 6.1 10^3/uL (1.7-8.2); BASOPHILS % (AUTO) 0.1 % (0-2); EOSINOPHILS % (AUTO) 0.8 % (0-6); HEMATOCRIT 42.2 % (37.9-51.0); LYMPHOCYTES % (AUTO) 27.3 % (13-45); MEAN CORPUSCULAR HEMOGLOBIN 32.9 pg (27.0-33.4); MEAN CORPUSCULAR HGB CONC 35.6 g/dL (32.0-36.0); MEAN CORPUSCULAR VOLUME 92 fl (80-97); MONOCYTES % (AUTO) 7.3 % (3-13); PLATELET COUNT 196 10^3/uL (150-450); RED BLOOD COUNT 4.57 10^6/uL (4.35-5.55); RED CELL DISTRIBUTION WIDTH 12.9 % (11.5-14.0); SEGMENTED NEUTROPHILS % (AUTO) 64.5 % (42-78); TOTAL CELLS COUNTED % (AUTO) 100 %; WHITE BLOOD COUNT 9.5 10^3/uL (4.0-10.5)
[2017-10-06 15:33] LABS: ALANINE AMINOTRANSFERASE 33 U/L (21-72); ALBUMIN 4.6 g/dL (3.5-5.0); ALKALINE PHOSPHATASE 48 U/L (38-126); AMYLASE 53 U/L (30-110); ANION GAP 10 (5-19); ASPARTATE AMINO TRANSFERASE 26 U/L (17-59); BILIRUBIN,DIRECT 0.2 mg/dL (0.0-0.4); BILIRUBIN,TOTAL 0.7 mg/dL (0.2-1.3); BLOOD UREA NITROGEN 7 mg/dL (7-20); CALCIUM 9.6 mg/dL (8.4-10.2); CARBON DIOXIDE 31 mmol/L (22-30); CHLORIDE 103 mmol/L (98-107); CHOLESTEROL 184.59 mg/dL (0-200); GLUCOSE 83 mg/dL (75-110); POTASSIUM 4.2 mmol/L (3.6-5.0); SODIUM 144.2 mmol/L (137-145); TOTAL PROTEIN 7.8 g/dL (6.3-8.2); TRIGLYCERIDES 154 mg/dL (<150)
[2017-10-06 15:45] LABS: DIRECT LDL 108 mg/dL (<100); VLDL CHOLESTEROL 30.8 mg/dL (10-31)
== END ==
LOC: CCC 14:23
DX: R51 Headache (principal)
CPT/HCPCS: 36415; 80053; 80061; 82150; 84443; 85025

== ENCOUNTER 2018-02-17 21:07 | Emergency (ER) | payer SELFPAY ==
[2018-02-17 21:47] VITALS: BP 135/70
== END 2018-02-18 00:15 | disposition left against medical advice (07) ==
LOC: ER 21:07
DX: Z53.21 Procedure and treatment not carried out due to patient leaving prior to being seen by health care provider (principal)

== ENCOUNTER 2018-04-16 15:19 | Emergency (ER) | payer SELFPAY ==
[2018-04-16] MEDS ORDERED: PROMETHAZINE HCL INJ 50 MG/1 ML VIAL IM PRN (15:30)
[2018-04-16] MEDS ORDERED: KETOROLAC TROMETHAMINE 60 MG/2 ML SDV IM ONE (15:30)
--- NOTE | 2018-04-16 15:31 | ER Document Report ---
ED Medical Screen (RME) - General Chief Complaint: Headache Stated Complaint: HEADACHE Time Seen by Provider: 04/16/18 15:30 Primary Care Provider: NATHANAEL LÓPEZ [Primary Care Provider] - Follow up as needed Mode of Arrival: Ambulatory Information source: Patient TRAVEL OUTSIDE OF THE [place] IN LAST 30 DAYS: No - HPI Patient complains to provider of: STEELE Onset: Other - pt has h/o migraine but has had no relief for the past 2 weeks despite meds. - Related Data Allergies/Adverse Reactions: Penicillins Allergy (Mild, Verified 02/08/17 02:08) Bleach (Sodium Hypochlorite) Allergy (Verified 06/23/17 17:25) latex Allergy (Verified 02/08/17 02:08) Past Medical History Renal/ Medical History: Denies: Hx Peritoneal Dialysis Psychiatric Medical History: Reports: Hx Bipolar Disorder, Hx Depression, Hx Post Traumatic Stress Disorder, Hx Schizophrenia Past Surgical History: Reports: Hx Orthopedic Surgery - Right finger - Immunizations Hx Diphtheria, Pertussis, Tetanus Vaccination: Yes Physical Exam - Vital signs Vitals: Temp Pulse Resp BP Pulse Ox 98.8 F 78 18 123/76 99 04/16/18 15:23 04/16/18 15:23 04/16/18 15:23 04/16/18 15:23 04/16/18 15:23 Course - Vital Signs Vital signs: Temp Pulse Resp BP Pulse Ox 98.8 F 78 18 123/76 99 04/16/18 15:23 04/16/18 15:23 04/16/18 15:23 04/16/18 15:23 04/16/18 15:23 Doctor's Discharge - Discharge Referrals: NATHANAEL LÓPEZ [Primary Care Provider] - Follow up as needed
[2018-04-16] MEDS ORDERED: PROMETHAZINE HCL 25 MG TABLET PO ONE (15:37)
[2018-04-16] MEDS ORDERED: HYDROCODONE/ACETAMINOPHEN 10-325 MG TABLET PO ONE (15:37)
--- NOTE | 2018-04-16 16:01 | RADIOLOGY REPORT (SQ) ---
EXAM DESCRIPTION: CT HEAD WITHOUT COMPLETED DATE/TIME: 04/16/2018 3:52 pm REASON FOR STUDY: STEELE COMPARISON: None. TECHNIQUE: Axial images acquired through the brain without intravenous contrast. Images reviewed wi th bone, brain and subdural windows. Additional sagittal and coronal reconstructions were generated. Images stored on PACS. All CT scanners at this facility use dose modulation, iterative reconstruction, and/or weight based d osing when appropriate to reduce radiation dose to as low as reasonably achievable (ALARA). [facility]: Dose Right [facility]: CareDose [facility]: Dose Right [facility]: Teradose 4D [facility]: [employer] RADIATION DOSE: CT Rad equipment meets quality standard of care and radiation dose reduction techniq ues were employed. CTDIvol: 53.2 mGy. DLP: 1097 mGy-cm. mGy. LIMITATIONS: None. FINDINGS: VENTRICLES: Normal size and contour. CEREBRUM: No masses. No hemorrhage. No midline shift. No evidence for acute infarction. Normal gra y/white matter differentiation. No areas of low density in the white matter. CEREBELLUM: No masses. No hemorrhage. No alteration of density. No evidence for acute infarction. EXTRAAXIAL SPACES: No fluid collections. No masses. ORBITS AND GLOBE: No intra- or extraconal masses. Normal contour of globe without masses. CALVARIUM: No fracture. PARANASAL SINUSES: No fluid or mucosal thickening. SOFT TISSUES: No mass or hematoma. OTHER: No other significant finding. IMPRESSION: NORMAL BRAIN CT WITHOUT CONTRAST. EVIDENCE OF ACUTE STROKE: NO. COMMENT: Quality ID # [id number]: Final reports with documentation of one or more dose reduction techniques (e.g., Automated exposure control, adjustment of the mA and/or kV according to patient size, use of iterative reconstruction technique) TECHNICAL DOCUMENTATION: JOB ID: [id number] [employer]- All Rights Reserved Reading location - IP/workstation name: [email or web address]
[2018-04-16 16:52] VITALS: BP 116/81
== END 2018-04-16 16:57 | disposition home or self-care (01) ==
LOC: ER 15:19
DX: G43.909 Migraine, unspecified, not intractable, without status migrainosus (principal); Z88.0 Allergy status to penicillin; Z91.040 Latex allergy status; Z91.048 Other nonmedicinal substance allergy status
CPT/HCPCS: 70450; 99283

== ENCOUNTER 2018-05-02 14:47 | Emergency (ER) | payer SELFPAY ==
[2018-05-02 14:55] VITALS: BP 140/85
[2018-05-02] MEDS ORDERED: CLINDAMYCIN HCL 150 MG CAPSULE PO ONE (15:04)
[2018-05-02] MEDS ORDERED: OXYCODONE-ACETAMINOPHEN 5-325 MG TABLET PO ONE (15:04)
--- NOTE | 2018-05-02 15:07 | ER Document Report ---
ED Oral Problem - General Chief Complaint: Toothache Stated Complaint: FACIAL SWELLING Time Seen by Provider: 05/02/18 14:56 Primary Care Provider: [facility] [NO LOCAL MD] - Follow up as needed Mode of Arrival: Ambulatory Information source: Patient Notes: 28-year-old male presents to ED for complaint of dental pain to the right upper gum tooth #6 and 7 with a abscess above the tooth. There is no obvious abscess noted but patient states that his dentist told him he had a abscess and that he needed to get antibiotics so that he could follow-up with them next week to have the tooth treated. Patient is alert oriented respirations regular and unlabored speaking in full sentences there is no obvious swelling to the face. TRAVEL OUTSIDE OF THE [place] IN LAST 30 DAYS: No - HPI Patient complains to provider of: Toothache Onset: Other - 4 days Onset: Gradual Quality of pain: Throbbing Severity: Moderate Pain Level: 4 Associated symptoms: Toothache Worsened by: Cold Relieved by: Nothing Similar symptoms previously: Yes Recently seen / treated by doctor/dentist: Yes - Related Data Allergies/Adverse Reactions: Penicillins Allergy (Mild, Verified 02/08/17 02:08) Bleach (Sodium Hypochlorite) Allergy (Verified 06/23/17 17:25) latex Allergy (Verified 02/08/17 02:08) Past Medical History - General Information source: Patient - Social History Smoking Status: Never Smoker Frequency of alcohol use: None Drug Abuse: None Lives with: Family, Spouse/Significant other Family History: Reviewed & Not Pertinent Patient has suicidal ideation: No Patient has homicidal ideation: No - Past Medical History Cardiac Medical History: Reports: None Pulmonary Medical History: Reports: None EENT Medical History: Reports: None Neurological Medical History: Reports: Hx Migraine Endocrine Medical History: Reports: None Renal/ Medical History: Reports: None Malignancy Medical History: Reports None GI Medical History: Reports: None Musculoskeletal Medical History: Reports None Skin Medical History: Reports None Psychiatric Medical History: Reports: Hx Bipolar Disorder, Hx Depression, Hx Post Traumatic Stress Disorder, Hx Schizophrenia Traumatic Medical History: Reports: None Infectious Medical History: Reports: None Past Surgical History: Reports: Hx Orthopedic Surgery - Right finger - Immunizations Hx Diphtheria, Pertussis, Tetanus Vaccination: Yes Review of Systems - Review of Systems Constitutional: No symptoms reported EENT: Mouth pain, Dental problem Cardiovascular: No symptoms reported Respiratory: No symptoms reported Gastrointestinal: No symptoms reported Genitourinary: No symptoms reported Male Genitourinary: No symptoms reported Musculoskeletal: No symptoms reported Skin: No symptoms reported Hematologic/Lymphatic: No symptoms reported Neurological/Psychological: No symptoms reported -: Yes All other systems reviewed and negative Physical Exam - Vital signs Vitals: Temp Pulse Resp BP Pulse Ox 98.7 F 71 18 140/85 H 100 05/02/18 14:54 05/02/18 14:54 05/02/18 14:54 05/02/18 14:54 05/02/18 14:54 Interpretation: Normal - General General appearance: Appears well, Alert - HEENT Head: Normocephalic, Atraumatic Eyes: Normal Pupils: PERRL Ears: Normal External canal: Normal Tympanic membrane: Normal Sinus: Normal Nasal: Normal Mouth/Lips: Caries Mucous membranes: Normal Teeth diagram: 1 - Complains of pain to the jaw in this area states he has an abscess above this area no swelling noted. No obvious cavities noted. Patient was treated with clindamycin and a Percocet in the emergency room sent home with a syringe of viscous lidocaine and a prescription for clindamycin - Respiratory Respiratory status: No respiratory distress Chest status: Nontender Breath sounds: Normal Chest palpation: Normal - Cardiovascular Rhythm: Regular Heart sounds: Normal auscultation Murmur: No - Abdominal Inspection: Normal Distension: No distension Bowel sounds: Normal Tenderness: Nontender Organomegaly: No organomegaly - Back Back: Normal, Nontender - Extremities General upper extremity: Normal inspection, Nontender, Normal color, Normal ROM, Normal temperature General lower extremity: Normal inspection, Nontender, Normal color, Normal ROM, Normal temperature, Normal weight bearing. No: Opal's sign - Neurological Neuro grossly intact: Yes Cognition: Normal Orientation: AAOx4 Teena Coma Scale Eye Opening: Spontaneous Funk Coma Scale Verbal: Oriented Teena Coma Scale Motor: Obeys Commands Teena Coma Scale Total: 15 Speech: Normal Motor strength normal: LUE, RUE, LLE, RLE Sensory: Normal - Psychological Associated symptoms: Normal affect, Normal mood - Skin Skin Temperature: Warm Skin Moisture: Dry Skin Color: Normal Course - Re-evaluation Re-evalutation: 05/02/18 15:17 Presentation is most consistent with likely an infected tooth. Airway is patent. Vitals within normal limits. Patient is able swallow without any difficulty. There is no significant facial swelling. No evidence of Zacarias angina, apical abscess, or airway obstruction. Patient will be started on antibiotics. I've instructed to follow-up with dentistry as earliest ability for definitive management. At this time will discharge with return precautions and follow-up recommendations. Verbal discharge instructions given a the bedside and opportunity for questions given. Medication warnings reviewed. Patient is in agreement with this plan and has verbalized understanding of return precautions and the need for primary care follow-up in the next 24-72 hours. - Vital Signs Vital signs: Temp Pulse Resp BP Pulse Ox 98.7 F 71 18 140/85 H 100 05/02/18 14:54 05/02/18 14:54 05/02/18 14:54 05/02/18 14:54 05/02/18 14:54 Discharge - Discharge Clinical Impression: Pain due to dental caries Condition: Stable Disposition: HOME, SELF-CARE Additional Instructions: TOOTHACHE: Your pain is due to dental decay. The tooth must be repaired in order for you to feel better. You will, therefore, be referred to a dentist. We do not have dentists on the staff at [facility]. Severe swelling or drainage around a tooth usually means a dental abscess. This also requires evaluation and treatment by the dentist, but antibiotics may be prescribed while awaiting dental treatment. You should be rechecked immediately if you develop major swelling of the face, increasing pain, a lump in the jaw or gums, headache, difficulty swallowing, or fever. ORAL NARCOTIC MEDICATION: You have been given a percocet for pain control. This medication is a narcotic. It's best taken with food, as nausea can result if taken on an empty stomach. Don't operate machinery or drive within six hours of taking this medication. Do not combine this medicine with alcohol, or with any medication which can cause sedation (such as cold tablets or sleeping pills) unless you get permission from the physician. Narcotics tend to cause constipation. If possible, drink plenty of fluids and eat a diet high in fiber and fruits. Please be aware that prescription narcotics also have the potential for abuse. People become addicted to these medications because of the general sense of wellbeing that they induce. This feeling along with a significant reduction in tension, anxiety, and aggression provides a stimulating seductive quality to these drugs. Once your pain is under control, we encourage you to discard your unused narcotics. CLINDAMYCIN: You have been given a prescription for the antibiotic clindamycin. It is often prescribed for infections in the mouth, such as dental infections or abs cesses, and for skin infections due to MRSA. It's important that you take all the medication, unless instructed otherwise by your physician. Failure to complete the entire course can result in relapse of your condition. Common side effects of antibiotics include nausea, intestinal cramping, or diarrhea. Women may develop vaginal yeast infections, and babies can get yeast (thrush) in the mouth following the use of antibiotics. Contact your physician if you develop significant side effects from this medication. Allergy to this antibiotic can result in hives, wheezing, faintness, or itching. If symptoms of allergy occur, stop the medication and call the doctor. FOLLOW-UP CARE: You have been referred for follow-up care to the dentists listed below. Call the dentists office for an appointment as you were instructed or within the next two days. If you experience worsening or a significant change in your symptoms, notify the physician immediately or return to the Emergency Department at any time for re-evaluation. [facility] [address] [place], [place] [facility] [address] [place] [address] [facility] [address] [facility] [address] [facility] [facility] [address] [facility] [email or web address] [facility] [address] [place] [address] Tuesday- 8:00am to 5:00 pm Will see patients from other [facility]. Charges based on income and family size and accepts Medicare, Medicaid, and Insurances Will pull molars [employer] [facility]. [id number] Hours of Operation 8:00 am - 4:30 pm weekdays The following dental offices accept Medicaid: [facility] [place] Dr. Milelr Dr. Gallegos Dr. Hollingsworth Dr. Seymour Kali Martinez, Amarjit, and Rachell oral surgery Dr. Swanson ([place]) Dr. Evans ([place]) [facility] Drs. Cifuentes ([place]) Dr. Foss ([place]) [facility] Dr. Wright ([place]) Drs. Mary and ([place]) Medicaid Care Line Prescriptions: Clindamycin HCl 300 mg PO Q6 #28 capsule Forms: Elevated Blood Pressure Referrals: [facility] [NO LOCAL MD] - Follow up as needed
[2018-05-02] MEDS ORDERED: LIDOCAINE 2% VISCOUS SOLN 20 ML UDCUP PO ONE (15:08)
== END 2018-05-02 15:17 | disposition home or self-care (01) ==
LOC: ER 14:47
DX: K02.9 Dental caries, unspecified (principal); K08.89 Other specified disorders of teeth and supporting structures; Z88.0 Allergy status to penicillin; Z91.048 Other nonmedicinal substance allergy status; Z91.040 Latex allergy status
CPT/HCPCS: 99282; J3490

== ENCOUNTER 2018-06-19 06:06 | Emergency (ER) | payer SELFPAY ==
[2018-06-19 06:11] VITALS: BP 132/87
[2018-06-19] MEDS ORDERED: IBUPROFEN 600 MG TABLET PO ONE (06:29)
--- NOTE | 2018-06-19 06:34 | ER Document Report ---
HPI - HPI Patient complains to provider of: Right jaw pain Time Seen by Provider: 06/19/18 06:29 Pain Level: 5 Context: Patient is a 28-year-old male presents to the emergency department for right jaw pain. States he does have a history of TMJ. States he was initially seen by dentist when he had insurance and is being treated with physical therapy but has stopped that because he no longer has insurance. Patient states he had this pain intermittently for the last week. States is worse now. States last time he took Tylenol was around 2300 hrs. last night. Patient's denying any injury or fever. Patient states he knows he has very bad dentition and has had multiple teeth pulled. Is denying any tooth pain. Past Medical History - General Information source: Patient - Social History Smoking Status: Current Every Day Smoker Frequency of alcohol use: None Drug Abuse: None Family History: Reviewed & Not Pertinent Patient has suicidal ideation: No Patient has homicidal ideation: No Neurological Medical History: Reports: Hx Migraine Renal/ Medical History: Denies: Hx Peritoneal Dialysis Psychiatric Medical History: Reports: Hx Bipolar Disorder, Hx Depression, Hx Post Traumatic Stress Disorder, Hx Schizophrenia Past Surgical History: Reports: Hx Orthopedic Surgery - Right finger - Immunizations Hx Diphtheria, Pertussis, Tetanus Vaccination: Yes Vertical Provider Document - CONSTITUTIONAL Agree With Documented VS: Yes Notes: GENERAL: Alert, interacts well. No acute distress. HEAD: Normocephalic, atraumatic. EYES: Pupils equal, round, and reactive to light. Extraocular movements intact. ENT: Oral mucosa moist, tongue midline. Patient does have very poor dentition. Patient appears to be missing to 31 and 30. Upon palpation of 232 and 29 elicits no pain although they are heavily decayed. No gum erythema or fluctuance or induration noted. Patient has pain palpation right TMJ, overlying skin is nonerythematous, non-warm , Nonswollen. No pain upon palpation left TMJ region. NECK: Full range of motion. Supple. Trachea midline. No lymphadenopathy appreciated LUNGS: Clear to auscultation bilaterally, no wheezes, rales, or rhonchi. No respiratory distress. HEART: Regular rate and rhythm. No murmur ABDOMEN: Soft, non-tender. Non-distended. Bowel sounds present in all 4 quadrants. EXTREMITIES: Moves all 4 extremities spontaneously. No edema, normal radial and dorsalis pedis pulses bilaterally. No cyanosis. BACK: no cervical, thoracic, lumbar midline tenderness. No saddle anesthesia, normal distal neurovascular exam. NEUROLOGICAL: Alert and oriented x3. Normal speech. [cranial nerves II through XII grossly intact]. PSYCH: Normal affect, normal mood. SKIN: Warm, dry, normal turgor. No rashes or lesions noted. - INFECTION CONTROL TRAVEL OUTSIDE OF THE [place] IN LAST 30 DAYS: No Course - Re-evaluation Re-evalutation: 06/19/18 06:31 Discussed with patient and correct use of Tylenol and Motrin alternating them every 3 hours. Discussed continued hydration status and following up initially with a dentist due to him being uninsured. Discussed use of [facility] [address], [facility], [facility]. Patient voices understanding is stable for discharge. Patient initially states he has been unable to eat "much" due to the pain. Patient is not noted to be tachycardic or show any signs of dehydration, moist mucous membranes noted. - Vital Signs Vital signs: Temp Pulse Resp BP Pulse Ox 97.8 F 54 L 16 132/87 H 99 06/19/18 06:08 06/19/18 06:08 06/19/18 06:08 06/19/18 06:08 06/19/18 06:08 Discharge - Discharge Clinical Impression: TMJ (temporomandibular joint disorder) Condition: Stable Disposition: HOME, SELF-CARE Instructions: Temporomandibular Joint Syndrome ([facility]) Additional Instructions: As we discussed you have been seen and treated in the emergency department for a chronic issue, your TMJ. Please make sure you continue to follow-up with dental clinic for continued care. Also as we discussed you should take 600 mg of ibuprofen alternated with the thousand milligrams of Tylenol every 3 hours. Please stay well-hydrated and follow-up with the dental clinic, [facility] [address], [facility]. Please return to the emergency room for any other concerns. Referrals: [facility] [Provider Group] - Follow up as needed [facility] [Provider Group] - Follow up as needed [facility] [Provider Group] - Follow up as needed
== END 2018-06-19 07:02 | disposition home or self-care (01) ==
LOC: ER 06:06
DX: M26.609 Unspecified temporomandibular joint disorder, unspecified side (principal); R68.84 Jaw pain; K02.9 Dental caries, unspecified; K08.409 Partial loss of teeth, unspecified cause, unspecified class; F17.200 Nicotine dependence, unspecified, uncomplicated
CPT/HCPCS: 99283

== ENCOUNTER 2018-08-01 21:06 | Emergency (ER) | payer SELFPAY ==
--- NOTE | 2018-08-01 22:36 | ER Document Report ---
ED Medical Screen (RME) - General Chief Complaint: General Weakness Stated Complaint: WEAKNESS Time Seen by Provider: 08/01/18 22:34 Notes: 28-year-old male coming in today with weakness, 2 syncopal episodes at work and general malaise. Generally normally healthy but states is having increased amounts of stress right now. Denies having chest pain or shortness of breath. I have treated and performed a rapid initial assessment of this patient. A comprehensive ED assessment and evaluation of the patient, analysis of test results and completion of medical decision making process will be conducted by additional ED providers. PHYSICAL EXAMINATION: GENERAL: Well-appearing, well-nourished and in no acute distress. A&Ox4. Answers questions appropriately. LUNGS: Breath sounds clear to auscultation bilaterally and equal. No wheezes rales or rhonchi. HEART: Regular rate and rhythm without murmurs, rubs, gallops. ABDOMEN: Soft, nondistended abdomen. No guarding, no rebound. Normal bowel sounds present. No CVA tenderness bilaterally. + mild epigastric tenderness (cannot elicit thorough abd exam w/o table, however). Extremities: No cyanosis, clubbing, or edema b/l. NEUROLOGICAL: Normal speech, normal gait. PSYCH: Normal mood, normal affect. TRAVEL OUTSIDE OF THE [place] IN LAST 30 DAYS: No - Related Data Allergies/Adverse Reactions: Penicillins Allergy (Mild, Verified 06/19/18 06:25) allantoin [From Orajel] Allergy (Verified 06/19/18 06:25) benzalkonium chloride [From Orajel] Allergy (Verified 06/19/18 06:25) benzocaine [From Orajel] Allergy (Verified 06/19/18 06:25) Bleach (Sodium Hypochlorite) Allergy (Verified 06/19/18 06:25) carbamide peroxide [From Orajel] Allergy (Verified 06/19/18 06:25) latex Allergy (Verified 06/19/18 06:25) zinc chloride [From Orajel] Allergy (Verified 06/19/18 06:25) Past Medical History - Social History Chew tobacco use (# tins/day): No Frequency of alcohol use: None Drug Abuse: None Neurological Medical History: Reports: Hx Migraine Renal/ Medical History: Denies: Hx Peritoneal Dialysis Psychiatric Medical History: Reports: Hx Bipolar Disorder, Hx Depression, Hx Post Traumatic Stress Disorder, Hx Schizophrenia Past Surgical History: Reports: Hx Orthopedic Surgery - Right finger - Immunizations Hx Diphtheria, Pertussis, Tetanus Vaccination: Yes Physical Exam - Vital signs Vitals: Temp Pulse Resp BP Pulse Ox 98.9 F 79 16 126/80 H 98 08/01/18 21:30 08/01/18 21:30 08/01/18 21:30 08/01/18 21:30 08/01/18 21:30 Course - Vital Signs Vital signs: Temp Pulse Resp BP Pulse Ox 98.9 F 79 16 126/80 H 98 08/01/18 21:30 08/01/18 21:30 08/01/18 21:30 08/01/18 21:30 08/01/18 21:30
[2018-08-01 23:34] LABS: ABSOLUTE LYMPHOCYTES (AUTO) 3.2 10^3/uL (0.5-4.7); ABSOLUTE MONOCYTES (AUTO) 0.5 10^3/uL (0.1-1.4); ABSOLUTE NEUT (AUTO) 6.3 10^3/uL (1.7-8.2); BASOPHILS % (AUTO) 0.5 % (0-2); EOSINOPHILS % (AUTO) 0.4 % (0-6); HEMOGLOBIN 15.1 g/dL (13.5-17.0); LYMPHOCYTES % (AUTO) 31.4 % (13-45); MEAN CORPUSCULAR HEMOGLOBIN 32.6 pg (27.0-33.4); MEAN CORPUSCULAR HGB CONC 34.4 g/dL (32.0-36.0); MEAN CORPUSCULAR VOLUME 95 fl (80-97); MONOCYTES % (AUTO) 5.2 % (3-13); PLATELET COUNT 212 10^3/uL (150-450); RED BLOOD COUNT 4.64 10^6/uL (4.35-5.55); RED CELL DISTRIBUTION WIDTH 13.9 % (11.5-14.0); SEGMENTED NEUTROPHILS % (AUTO) 62.5 % (42-78); TOTAL CELLS COUNTED % (AUTO) 100 %; WHITE BLOOD COUNT 10.1 10^3/uL (4.0-10.5)
[2018-08-01 23:44] LABS: ALANINE AMINOTRANSFERASE 36 U/L (21-72); ALBUMIN 4.7 g/dL (3.5-5.0); ALKALINE PHOSPHATASE 44 U/L (38-126); ANION GAP 7 (5-19); ASPARTATE AMINO TRANSFERASE 30 U/L (17-59); BILIRUBIN,DIRECT 0.3 mg/dL (0.0-0.4); BILIRUBIN,TOTAL 0.8 mg/dL (0.2-1.3); BLOOD UREA NITROGEN 8 mg/dL (7-20); CALCIUM 9.7 mg/dL (8.4-10.2); CARBON DIOXIDE 32 mmol/L (22-30); CHLORIDE 103 mmol/L (98-107); GLUCOSE 91 mg/dL (75-110); POTASSIUM 4.1 mmol/L (3.6-5.0); SODIUM 142.3 mmol/L (137-145); TOTAL PROTEIN 7.6 g/dL (6.3-8.2)
[2018-08-02 00:48] LABS: APPEARANCE,URINE CLEAR; BILIRUBIN,URINE NEGATIVE (NEGATIVE); COLOR,URINE AMBER; GLUCOSE, URINE NEGATIVE (NEGATIVE); KETONES,URINE NEGATIVE (NEGATIVE); LEUKOCYTE ESTERASE,URINE NEGATIVE (NEGATIVE); NITRITE,URINE NEGATIVE (NEGATIVE); PROTEIN,URINE NEGATIVE (NEGATIVE); URINE SPECIFIC GRAVITY 1.028
[2018-08-02 03:46] VITALS: BP 128/79
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
[2018-08-02] MEDS ORDERED: CLINDAMYCIN HCL 150 MG CAPSULE PO ONE (04:10)
--- NOTE | 2018-08-02 07:48 | EKG REPORT ---
SEVERITY:- NORMAL ECG - SINUS RHYTHM : Confirmed by: Rebecca Vicente MD 02-Aug-2018 07:47:19
== END 2018-08-02 04:25 | disposition home or self-care (01) ==
LOC: ER 21:06
DX: K08.9 Disorder of teeth and supporting structures, unspecified (principal); R55 Syncope and collapse; R53.1 Weakness; Z88.0 Allergy status to penicillin; Z91.040 Latex allergy status
CPT/HCPCS: 36415; 80053; 81001; 84443; 85025; 93005; 93010; 99284

== ENCOUNTER 2018-10-22 02:54 | Emergency (ER) | payer SELFPAY ==
--- NOTE | 2018-10-22 05:36 | RADIOLOGY REPORT (SQ) ---
Right foot three view on 10/22/2018 at 5:18 AM CLINICAL INDICATION: Right foot pain, stubbed great toe two months ago COMPARISON: None FINDINGS: There are no fractures. Visualized joints are well aligned. No bony abnormality is noted. IMPRESSION: No acute abnormality.
--- NOTE | 2018-10-22 05:45 | ER Document Report ---
HPI - HPI Time Seen by Provider: 10/22/18 04:45 Pain Level: 3 Context: Patient is a 28-year-old male that comes emergency department for chief complaint of right toe pain. He states he has had toe pain for almost 2 months now ever since he stubbed his toe. He did not have an x-ray at that time and he is worried he might have broken it and it is not healing correctly. He denies redness, swelling, fever/chills, open wound, or any other complaints. Past Medical History - General Information source: Patient - Social History Smoking Status: Current Every Day Smoker Chew tobacco use (# tins/day): No Frequency of alcohol use: Rare Drug Abuse: None Lives with: Family Family History: Reviewed & Not Pertinent Patient has suicidal ideation: No Patient has homicidal ideation: No Neurological Medical History: Reports: Hx Migraine Renal/ Medical History: Denies: Hx Peritoneal Dialysis Psychiatric Medical History: Reports: Hx Bipolar Disorder, Hx Depression, Hx Post Traumatic Stress Disorder, Hx Schizophrenia Past Surgical History: Reports: Hx Orthopedic Surgery - Right finger - Immunizations Hx Diphtheria, Pertussis, Tetanus Vaccination: Yes Vertical Provider Document - INFECTION CONTROL TRAVEL OUTSIDE OF THE [place] IN LAST 30 DAYS: No - HEENT HEENT: Atraumatic, Normal ENT Exam, Normocephalic - NECK Neck: Normal Inspection - RESPIRATORY Respiratory: Breath Sounds Normal, No Respiratory Distress - CARDIOVASCULAR Cardiovascular: Regular Rate, Regular Rhythm - GI/ABDOMEN Gastrointestinal: Abdomen Soft, Abdomen Non-Tender - BACK Back: Normal Inspection - MUSCULOSKELETAL/EXTREMETIES Musculoskeletal/Extremeties: MAEW, FROM, Non-Tender - Patient points to the MCP of the right foot of the great toe as the location of pain but I do not note any pain on evaluation. There is no swelling, abnormal erythema, range of motion is still intact, there is normal capillary refill and sensation. Remaining foot and leg exam unremarkable. - NEURO Level of Consciousness: Awake, Alert, Appropriate Motor/Sensory: No Motor Deficit, No Sensory Deficit - DERM Integumentary: Warm, Dry, No Rash Course - Re-evaluation Re-evalutation: X-ray negative for any acute or concerning findings. His examination is very unremarkable with no evidence of infection, no soft tissue swelling, no tenderness, patient ambulates without difficulty. I did discuss recommendations, findings, patient states appreciation and agreement. - Vital Signs Vital signs: Temp Pulse Resp BP Pulse Ox 98.1 F 73 18 123/81 99 10/22/18 03:00 10/22/18 03:00 10/22/18 03:00 10/22/18 03:00 10/22/18 03:00 Discharge - Discharge Clinical Impression: Pain of right great toe Condition: Stable Disposition: HOME, SELF-CARE Additional Instructions: The x-ray is normal. There is no soft tissue swelling, fracture, old fracture, dislocation, or other concerning findings noted. Consider changing your shoes. Take the anti-inflammatory as prescribed. Ice and elevate when possible if this begins to hurt again. Follow-up with primary care. Return for any concerning symptoms including swelling, redness, or any other concerning or worsening symptoms. Prescriptions: Naproxen 500 mg PO BID PRN #20 tablet PRN Reason: Forms: Return to Work
[2018-10-22 05:55] VITALS: BP 111/77
== END 2018-10-22 05:55 | disposition home or self-care (01) ==
LOC: ER 02:54
DX: M79.674 Pain in right toe(s) (principal); W22.8XXA Striking against or struck by other objects, initial encounter; F17.200 Nicotine dependence, unspecified, uncomplicated
CPT/HCPCS: 99283

== ENCOUNTER 2018-10-29 00:14 | Emergency (ER) | payer SELFPAY ==
[2018-10-29 00:23] VITALS: BP 124/78
--- NOTE | 2018-10-29 01:42 | ER Document Report ---
ED General - General Chief Complaint: Medical Clearance Stated Complaint: STOMACH VIRUS Time Seen by Provider: 10/29/18 01:26 Mode of Arrival: Ambulatory Information source: Patient Notes: Chief complaint: Vomited History of complain:( obtained from----patient) 22 years old male had a episode of vomiting x2 this morning, currently feeling better. He presents today for letter to return to work. Denies any current nausea vomiting fever chills abdominal pain Onset: As above Duration: As above Severity: Mild Quality: As above Context: As above Exacerbating factor and relieving factors: None REVIEW OF SYSTEMS: CONSTITUTIONAL : Denies fever, chills, or sweats. Denies recent illness. EENT: Denies eye, ear, throat, or mouth pain or symptoms. Denies nasal or sinus congestion or discharge. Denies throat, tongue, or mouth swelling or difficulty swallowing. CARDIOVASCULAR: Denies chest pain. Denies palpitations or racing or irregular heart beat. Denies ankle edema. RESPIRATORY: Denies cough, cold, or chest congestion. Denies shortness of breath, difficulty breathing, or wheezing. GASTROINTESTINAL: Denies distention. Denies nausea, vomiting, or diarrhea. Denies blood in vomitus, stools, or per rectum. Denies black, tarry stools. Denies constipation. GENITOURINARY: Denies difficulty urinating, painful urination, burning, frequency, blood in urine, or discharge. FEMALE GENITOURINARY: Denies vaginal bleeding, heavy or abnormal periods, irregular periods. Denies vaginal discharge or odor. MUSCULOSKELETAL: Denies back or neck pain or stiffness. Denies joint pain or swelling. SKIN: Denies rash, lesions or sores. HEMATOLOGIC : Denies easy bruising or bleeding. LYMPHATIC: Denies swollen, enlarged glands. NEUROLOGICAL: Denies confusion or altered mental status. Denies passing out or loss of consciousness. Denies dizziness or lightheadedness. Denies headache. Denies weakness or paralysis or loss of use of either side. Denies problems with gait or speech. Denies sensory loss, numbness, or tingling. Denies seizures. PSYCHIATRIC: Denies anxiety or stress. Denies depression, suicidal ideation, or homicidal ideation. ALL OTHER SYSTEMS REVIEWED AND NEGATIVE. PHYSICAL EXAMINATION: GENERAL: Well-appearing, well-nourished and in no acute distress. HEAD: Atraumatic, normocephalic. EYES: Pupils equal round and reactive to light, extraocular movements intact, conjunctiva are normal. LUNGS: Breath sounds clear to auscultation bilaterally and equal. No wheezes rales or rhonchi. HEART: Regular rate and rhythm without murmurs ABDOMEN: Soft, nontender, nondistended abdomen. No guarding, no rebound. No masses appreciated. Examination of genitals-deferred Musculoskeletal: Normal range of motion, no pitting or edema. No cyanosis. NEUROLOGICAL: Cranial nerves grossly intact. Normal speech, normal gait. Normal sensory, motor exams SKIN: Warm, Dry, normal turgor, no rashes or lesions noted. Dictation was performed using [employer] voice recognition software TRAVEL OUTSIDE OF THE [place] IN LAST 30 DAYS: No - HPI Notes: Dictated - Related Data Allergies/Adverse Reactions: Penicillins Allergy (Mild, Verified 06/19/18 06:25) allantoin [From Orajel] Allergy (Verified 06/19/18 06:25) benzalkonium chloride [From Orajel] Allergy (Verified 06/19/18 06:25) benzocaine [From Orajel] Allergy (Verified 06/19/18 06:25) Bleach (Sodium Hypochlorite) Allergy (Verified 06/19/18 06:25) carbamide peroxide [From Orajel] Allergy (Verified 06/19/18 06:25) latex Allergy (Verified 06/19/18 06:25) zinc chloride [From Orajel] Allergy (Verified 06/19/18 06:25) Past Medical History - Social History Smoking Status: Never Smoker Frequency of alcohol use: Rare Drug Abuse: None Lives with: Family Family History: Reviewed & Not Pertinent Patient has suicidal ideation: No Patient has homicidal ideation: No Neurological Medical History: Reports: Hx Migraine Renal/ Medical History: Denies: Hx Peritoneal Dialysis Psychiatric Medical History: Reports: Hx Bipolar Disorder, Hx Depression, Hx Post Traumatic Stress Disorder, Hx Schizophrenia Past Surgical History: Reports: Hx Orthopedic Surgery - Right finger - Immunizations Hx Diphtheria, Pertussis, Tetanus Vaccination: Yes Review of Systems - Review of Systems Notes: Dictated Physical Exam - Vital signs Vitals: Temp Pulse Resp BP Pulse Ox 97.8 F 72 16 124/78 99 10/29/18 00:10/29/18 00:10/29/18 00:10/29/18 00:10/29/18 00:19 - Notes Notes: Dictated Course - Vital Signs Vital signs: Temp Pulse Resp BP Pulse Ox 97.8 F 72 16 124/78 99 10/29/18 00:10/29/18 00:10/29/18 00:10/29/18 00:10/29/18 00:19 Discharge - Discharge Clinical Impression: Nausea & vomiting Qualifiers: Vomiting type: unspecified Vomiting Intractability: non-intractable Qualified Code(s): R11.2 - Nausea with vomiting, unspecified Condition: Fair Disposition: HOME, SELF-CARE Instructions: Vomiting ([facility]) Forms: Parent Work Note, Return to Work
== END 2018-10-29 02:04 | disposition home or self-care (01) ==
LOC: ER 00:14
DX: R11.2 Nausea with vomiting, unspecified (principal)
CPT/HCPCS: 99283